=== PATIENT | female | born 1995 ===

== ENCOUNTER 2018-03-12 12:33 | Emergency (ER) | payer BC ==
--- NOTE | 2018-03-12 14:43 | UC ---
Abdominal Pain Female HPI - HPI Summary HPI Summary: Patient to urgent care [facility] with chief complaint of 24 hours nausea vomiting diffuse abdominal pain - History of Current Complaint Chief Complaint: UCAbdominalPain Stated Complaint: FEVER, CHILLS Time Seen by Provider: 03/12/18 14:42 Hx Obtained From: Patient Hx Last Menstrual Period: 02/26/18 ?: No Onset/Duration: Sudden Onset, Lasting Days - 1 Timing: Constant Severity Initially: Moderate Severity Currently: Moderate Pain Intensity: 6 Pain Scale Used: 0-10 Numeric Location: Diffuse Radiates: Yes Character: Aching Aggravating Factor(s): Nothing Alleviating Factor(s): Nothing Associated Signs and Symptoms: Positive: Nausea, Vomiting Allergies/Adverse Reactions: Allergies Allergy/AdvReac Type Severity Reaction Status Date / Time No Known Allergies Allergy Verified 03/12/18 14:28 Home Medications: Home Medications Sertraline* [Zoloft*] 50 mg PO DAILY 03/12/18 [History Confirmed 03/12/18] PMH/Surg Hx/FS Hx/Imm Hx Previously Healthy: No - PCOS Psychological History: Depression - Surgical History Surgical History: None - Family History Known Family History: Positive: None - Social History Occupation: Student Lives: Dormitory/Roommates Alcohol Use: Rare Substance Use Type: None Smoking Status (MU): Never Smoked Tobacco Review of Systems Constitutional: Negative Skin: Negative Eyes: Negative ENT: Negative Respiratory: Negative Cardiovascular: Negative Gastrointestinal: Vomiting, Nausea Genitourinary: Negative Motor: Negative Neurovascular: Negative Musculoskeletal: Negative Neurological: Negative Psychological: Negative Is Patient Immunocompromised?: No All Other Systems Reviewed And Are Negative: Yes Physical Exam Triage Information Reviewed: Yes Appearance: Well-Appearing, No Pain Distress, Well-Nourished Vital Signs: Initial Vital Signs Temp 98.7 F 03/12/18 14:26 Pulse 76 03/12/18 14:26 Resp 16 03/12/18 14:26 BP 110/60 03/12/18 14:26 Pulse Ox 100 03/12/18 14:26 Vital Signs Reviewed: Yes Eye Exam: Normal Eyes: Positive: Conjunctiva Clear ENT Exam: Normal ENT: Positive: Normal ENT inspection, Hearing grossly normal, TMs normal, Uvula midline. Negative: Nasal congestion, Trismus, Muffled voice, Hoarse voice, Dental tenderness, Sinus tenderness Neck exam: Normal Neck: Positive: Supple, Nontender, No Lymphadenopathy Respiratory Exam: Normal Respiratory: Positive: Chest non-tender, Lungs clear, Normal breath sounds, No respiratory distress, No accessory muscle use Cardiovascular Exam: Normal Cardiovascular: Positive: RRR, No Murmur, Pulses Normal, Brisk Capillary Refill Abdominal Exam: Normal Abdomen Description: Positive: No Organomegaly, Soft, Other: - Diffuse abdominal discomfort. Negative: CVA Tenderness (R), CVA Tenderness (L), McBurney's Point Tenderness Bowel Sounds: Positive: Present Musculoskeletal Exam: Normal Musculoskeletal: Positive: Strength Intact, ROM Intact, No Edema Neurological Exam: Normal Neurological: Positive: Alert, Muscle Tone Normal Psychological Exam: Normal Skin Exam: Normal Re-Evaluation - Re-Evaluation First Eval Change: Improved - Patient able to tolerate clear liquids well and feeling much better after Zofran Abd Pain Female Course/Dx - Course Course Of Treatment: Home rest and clear liquid diet slowly follow-up [facility] for continued symptoms or go to the emergency department for acute change in symptoms - Differential Dx/Diagnosis Provider Diagnoses: Acute nausea vomiting Discharge - Sign-Out/Discharge Documenting (check all that apply): Discharge - Discharge Plan Condition: Stable Disposition: HOME Patient Education Materials: Dehydration (ED), Clear Liquid Diet (ED), Acute Nausea and Vomiting (ED), Viral Syndrome (ED) Referrals: [facility] [Outside] - If Needed - Billing Disposition and Condition Condition: STABLE Disposition: HOME
[2018-03-12] MEDS ORDERED: Ondansetron ODT TAB* 4 MG PO ONE (14:48)
== END 2018-03-12 15:38 | disposition home or self-care (01) ==
LOC: UCCORT 12:33
DX: R50.9 Fever, unspecified (principal); Z32.02 Encounter for pregnancy test, result negative
CPT/HCPCS: 81003; 84702; 87086; 87502; 99202; A9270-GY; G0463